=== PATIENT | female | born 1940 | race Caucasian/White ===

== ENCOUNTER 2018-06-29 13:46 | Observation (INO) | payer MEDICARE, BC ==
--- NOTE | 2018-06-29 14:05 | EDM.PDOC ---
ED HPI GENERAL MEDICAL PROBLEM - General Chief Complaint: General Stated Complaint: FLU LIKE SYMPTOMS Time Seen by Provider: 06/29/18 13:46 Source of Information: Reports: Patient, Family (son) History Limitations: Reports: No Limitations - History of Present Illness INITIAL COMMENTS - FREE TEXT/NARRATIVE: 77 y.o.w.prasanth came to the ED because she is too week to ambulate, is bed ridden for a few days,vomited multiple times, coughing. Pt denied sick contact. She lives by herself. She is only to go to the bathroom and back to the beds because of weakness. She denied painful urination, no trauma. She feels extremely nauseated. No SOB or CP.no other acute medical issues. BP 165/95 RR 18 Pulse ox 93% on RA RR 18 pulse 93 Temp 36.7 Onset Date: 06/25/18 Onset Time: 07:00 Duration: Day(s):, Getting Worse, Intermittent Location: Reports: Generalized Quality: Reports: Same as Previous Episode Severity: Moderate Improves with: Reports: Rest Worsens with: Reports: Movement Context: Reports: Sick Contact Associated Symptoms: Reports: Cough, Loss of Appetite, Nausea/Vomiting, Weakness - Related Data Allergies Allergy/AdvReac Type Severity Reaction Status Date / Time codeine Allergy Hives Verified 06/29/18 18:53 fluconazole [From Diflucan] Allergy Hives Verified 06/29/18 18:53 tramadol Allergy Hives Verified 06/29/18 18:53 NUT Allergy Cannot Uncoded 06/29/18 18:53 Remember Home Meds: Home Meds Acetaminophen [Tylenol Arthritis Pain] 650 mg PO Q8H PRN 11/02/13 [History] Aspirin [Adult Low Dose Aspirin EC] 81 mg PO DAILY 11/02/13 [History] Cholecalciferol (Vitamin D3) [Vitamin D3] 2,000 unit PO BID 11/02/13 [History] Losartan [Cozaar] 50 mg PO DAILY 11/02/13 [History] glipiZIDE [Glipizide Xl] 2.5 mg PO DAILY 11/02/13 [History] hydrOXYzine HCl [hydrOXYzine] 50 mg PO BEDTIME PRN 11/02/13 [History] ED ROS GENERAL - Review of Systems Review Of Systems: See Below Constitutional: Reports: Malaise, Weakness, Fatigue, Decreased Appetite HEENT: Reports: No Symptoms Respiratory: Reports: Cough, Sputum Cardiovascular: Reports: No Symptoms Endocrine: Reports: No Symptoms GI/Abdominal: Reports: No Symptoms : Reports: No Symptoms Musculoskeletal: Reports: No Symptoms Skin: Reports: No Symptoms Neurological: Reports: Dizziness, Difficulty Walking, Weakness Psychiatric: Reports: No Symptoms Hematologic/Lymphatic: Reports: No Symptoms Immunologic: Reports: No Symptoms ED EXAM, GENERAL - Physical Exam Exam: See Below Exam Limited By: No Limitations General Appearance: Alert, Moderate Distress, Thin Eye Exam: Bilateral Eye: Normal Inspection Ears: Normal External Exam Ear Exam: Bilateral Ear: Auricle Normal Nose: Normal Inspection, Normal Mucosa, No Blood Throat/Mouth: Normal Inspection, Normal Lips, Normal Voice, No Airway Compromise Head: Atraumatic, Normocephalic Neck: Normal Inspection, Supple, Non-Tender Respiratory/Chest: No Respiratory Distress, Rhonchi Cardiovascular: Normal Peripheral Pulses, Regular Rate, Rhythm GI/Abdominal: Normal Bowel Sounds, Soft, Non-Tender, No Organomegaly, No Mass, Pelvis Stable (Female) Exam: Deferred Rectal (Female) Exam: Deferred Back Exam: Normal Inspection, Full Range of Motion Extremities: Normal Inspection Neurological: Alert, Oriented, CN II-XII Intact Psychiatric: Normal Affect, Normal Mood Skin Exam: Warm, Dry, Intact, Normal Color Lymphatic: No Adenopathy Course - Vital Signs Text/Narrative:: 77 y.o.w.f came to the ED because she is too week to ambulate, is bed ridden for a few days,vomited multiple times, coughing. Pt denied sick contact. She lives by herself. She is only to go to the bathroom and back to the beds because of weakness. She denied painful urination, no trauma. She feels extremely nauseated. No SOB or CP.no other acute medical issues. BP 165/95 RR 18 Pulse ox 93% on RA RR 18 pulse 93 Temp 36.7 PE: Thin 77 y.o w f with gen weakness, vomiting Labs: WBC nl except Neurt 82.3 BMP nl except BUN 24 Cr. 0.8 BUN/CR ratio elevated Glc 204 UA pos for UTI. Impression: Viral syndrome, Bronchitis, UTI, Dehydration, gen weakness, H/O NIDDM Tx: NS, Levaquin, Zofran, Antivert, Reglan Reexam: Her strength did not improve, unable to ambulate, still nauseated, pt lives by herself Plan: Admit to M?S Last Recorded V/S: Last Vital Signs Temp 36.8 C 06/29/18 19:59 Pulse 86 06/29/18 19:59 Resp 18 06/29/18 19:59 BP 122/63 06/29/18 19:59 Pulse Ox 96 06/29/18 19:59 - Orders/Labs/Meds Orders: Active Orders 24 hr Category Date Time Status RT Aerosol Therapy [RC] ASDIRECTED Care 06/29/18 14:42 Active Chest 1V Frontal [CR] Stat Exams 06/29/18 14:04 Taken Labs: Laboratory Tests 06/29/18 06/29/18 06/29/18 Range/Units 14:20 14:20 14:20 WBC 9.3 (4.5-12.0) X10-3/uL RBC 4.85 (3.23-5.20) x10(6)uL Hgb 14.4 (11.5-15.5) g/dL Hct 43.4 (30.0-51.3) % MCV 89.3 (80-96) fL MCH 29.8 (27.7-33.6) pg MCHC 33.3 (32.2-35.4) g/dL RDW 13.3 (11.5-15.5) % Plt Count 172 (125-369) X10(3)uL MPV 8.5 (7.4-10.4) fL Neut % (Auto) 82.3 H (46-82) % Lymph % (Auto) 6.6 L (13-37) % [place] % (Auto) 10.2 (4-12) % Eos % (Auto) 0 L (1.0-5.0) % Baso % (Auto) 1 (0-2) % Neut # (Auto) 7.7 (1.6-8.3) # Lymph # (Auto) 0.6 (0.6-5.0) # Toole # (Auto) 0.9 (0.0-1.3) # Eos # (Auto) 0.0 (0.0-0.8) # Baso # (Auto) 0.1 (0.0-0.2) # Sodium 137 (135-145) mmol/L Potassium 4.4 (3.5-5.3) mmol/L Chloride 99 L (100-110) mmol/L Carbon Dioxide 26 (21-32) mmol/L BUN 24 H (7-18) mg/dL Creatinine 0.8 (0.55-1.02) mg/dL Est Cr Clr Drug Dosing 48.72 mL/min Estimated GFR (MDRD) > 60 (>60) BUN/Creatinine Ratio 30.0 H (9-20) Glucose 204 H (80-116) mg/dL Lactic Acid 1.7 (0.4-2.2) mmol/L Calcium 9.4 (8.6-10.2) mg/dL Urine Color (YELLOW) Urine Appearance (CLEAR) Urine pH (5.0-6.5) Ur Specific [place] (1.010-1.025) Urine Protein (NEGATIVE) mg/dL Urine Glucose (UA) (NORMAL) mg/dL Urine Ketones (NEGATIVE) mg/dL Urine Occult Blood (NEGATIVE) Urine Nitrite (NEGATIVE) Urine Bilirubin (NEGATIVE) Urine Urobilinogen (NEGATIVE) mg/dL Ur Leukocyte Esterase (NEGATIVE) Urine RBC (0-5) Urine WBC (0-5) Ur Squamous Epith Cells (NS,R,O) Urine Bacteria (NS) 06/29/18 Range/Units 16:57 WBC (4.5-12.0) X10-3/uL RBC (3.23-5.20) x10(6)uL Hgb (11.5-15.5) g/dL Hct (30.0-51.3) % MCV (80-96) fL MCH (27.7-33.6) pg MCHC (32.2-35.4) g/dL RDW (11.5-15.5) % Plt Count (125-369) X10(3)uL MPV (7.4-10.4) fL Neut % (Auto) (46-82) % Lymph % (Auto) (13-37) % [place] % (Auto) (4-12) % Eos % (Auto) (1.0-5.0) % Baso % (Auto) (0-2) % Neut # (Auto) (1.6-8.3) # Lymph # (Auto) (0.6-5.0) # [place]ole # (Auto) (0.0-1.3) # Eos # (Auto) (0.0-0.8) # Baso # (Auto) (0.0-0.2) # Sodium (135-145) mmol/L Potassium (3.5-5.3) mmol/L Chloride (100-110) mmol/L Carbon Dioxide (21-32) mmol/L BUN (7-18) mg/dL Creatinine (0.55-1.02) mg/dL Est Cr Clr Drug Dosing mL/min Estimated GFR (MDRD) (>60) BUN/Creatinine Ratio (9-20) Glucose (80-116) mg/dL Lactic Acid (0.4-2.2) mmol/L Calcium (8.6-10.2) mg/dL Urine Color Yellow (YELLOW) Urine Appearance Clear (CLEAR) Urine pH 5.0 (5.0-6.5) Ur Specific [place] 1.025 (1.010-1.025) Urine Protein 30 H (NEGATIVE) mg/dL Urine Glucose (UA) 50 H (NORMAL) mg/dL Urine Ketones 15 H (NEGATIVE) mg/dL Urine Occult Blood Large H (NEGATIVE) Urine Nitrite Negative (NEGATIVE) Urine Bilirubin Negative (NEGATIVE) Urine Urobilinogen Normal (NEGATIVE) mg/dL Ur Leukocyte Esterase Large H (NEGATIVE) Urine RBC 5-10 H (0-5) Urine WBC 5-10 H (0-5) Ur Squamous Epith Cells Occasional (NS,R,O) Urine Bacteria Rare H (NS) Meds: Medications Discontinued Medications Generic Name Dose Route Start Last Admin Trade Name Freq PRN Reason Stop Dose Admin Albuterol/Ipratropium 3 ml 06/29/18 14:42 06/29/18 14:48 Duoneb 3.0-0.5 Mg/3 Ml NEB 06/29/18 14:43 3 ml ONETIME ONE Administration Sodium Chloride 500 mls @ 999 mls/hr 06/29/18 14:41 06/29/18 14:46 Normal Saline IV 06/29/18 15:11 999 mls/hr .BOLUS ONE Administration Sodium Chloride 1,000 mls @ 999 mls/hr 06/29/18 15:44 06/29/18 15:45 Normal Saline IV 06/29/18 16:44 999 mls/hr .BOLUS ONE Administration Levofloxacin 500 mg 06/29/18 14:43 06/29/18 14:48 Levaquin PO 06/29/18 14:44 500 mg ONETIME STA Administration Meclizine HCl 25 mg 06/29/18 17:46 06/29/18 17:51 Antivert PO 06/29/18 17:47 25 mg ONETIME ONE Administration Metoclopramide HCl 10 mg 06/29/18 18:50 06/29/18 19:00 Reglan IVPUSH 06/29/18 18:51 10 mg ONETIME ONE Administration Ondansetron HCl 8 mg 06/29/18 14:41 06/29/18 14:48 Zofran IVPUSH 06/29/18 14:42 8 mg ONETIME ONE Administration Departure - Departure Time of Disposition: 19:17 Disposition: Refer to Observation Condition: Fair Clinical Impression: Weakness, Viral syndrome - Discharge Information - My Orders Last 24 Hours: My Active Orders 06/29/18 14:04 Chest 1V Frontal [CR] Stat 06/29/18 14:42 RT Aerosol Therapy [RC] ASDIRECTED - Assessment/Plan Last 24 Hours: My Active Orders 06/29/18 14:04 Chest 1V Frontal [CR] Stat 06/29/18 14:42 RT Aerosol Therapy [RC] ASDIRECTED
[2018-06-29] MEDS ORDERED: Sodium Chloride 0.9% 500 ML IV ONE (14:41)
[2018-06-29] MEDS ORDERED: Ondansetron 4 MG/2 ML SDV IVPUSH ONE (14:41)
[2018-06-29] MEDS ORDERED: Albuterol/Ipratropium 3.0-0.5 MG/3 ML Neb Soln NEB ONE (14:42)
[2018-06-29] MEDS ORDERED: Levofloxacin 500 MG Tab PO STA (14:43)
[2018-06-29] MEDS ORDERED: Sodium Chloride 0.9% 1,000 ML IV ONE (15:44)
[2018-06-29] MEDS ORDERED: Meclizine 25 MG Tab PO ONE (17:46)
[2018-06-29] MEDS ORDERED: Metoclopramide 10 MG/2 ML SDV IVPUSH ONE (18:50)
[2018-06-29] MEDS ORDERED: HYDROXYZINE HCL 50 MG PO PRN (21:40)
[2018-06-29] MEDS: Acetaminophen 650 MG Tab.ER PO PRN (22:37)
[2018-06-30] MEDS ORDERED: Aspirin 81 MG Tab.EC PO SCH (09:00)
[2018-06-30] MEDS ORDERED: glipiZIDE 5 MG Tab.ER PO SCH (09:00)
[2018-06-30] MEDS ORDERED: Losartan 50 MG Tab PO SCH (09:00)
[2018-06-30] MEDS ORDERED: Non-Formulary Medication 1 Each (Cholecalciferol (Vitamin D3) [Vitamin D3] 2,000 UNIT) PO SCH (09:00)
[2018-06-30] MEDS ORDERED: Lactated Ringers 1,000 ML IV SCH (09:30)
--- NOTE | 2018-06-30 11:46 | CR ---
INDICATION: Cough. CHEST: A portable AP upright view of the chest, 06/29/18 - no comparison. Calcification is noted in the arch of the aorta. The chest is rotated to the left somewhat. Buttons are noted overlying the upper middle chest. The heart is normal in size and shape. A definite active infiltrate or effusion was not identified. However, bronchial wall cuffing is noted, mostly at the lung bases, which may be on the basis of fibrosis and/or active peribronchial disease and should be correlated clinically. MTDD
--- NOTE | 2018-06-30 12:25 | HP ---
ADMISSION DATE: 06/29/2018 CHIEF COMPLAINT: Weakness, nausea, vomiting. HISTORY OF PRESENT ILLNESS: Domi is a 77-year-old woman from [place], [place], with a history of hypertension, type 2 diabetes, and chronic itching. She states that approximately for the past two weeks she has had low-grade fevers, and six days ago, she began to have higher fever with headache. Five days ago, she began vomiting, and she has been vomiting every day since that. She has been unable to eat and hold only small amounts of liquid down. She has not had any diarrhea, but she has had some lower abdominal discomfort and cough. For the past three days, she has had significant nasal congestion and her cough has been productive of green and now yellow phlegm. She has not had chest pain, palpitations, dyspnea, hematochezia, or melena. PAST MEDICAL HISTORY: Hypertension, treated for about five years; diabetes, well controlled on glipizide. She is status post spinal fusion, removal of cyst from her foot. She has had left wrist surgery. She is 4, para 3, with three normal deliveries. No other surgeries or medical problems. MEDICATIONS: 1. Losartan 50 mg daily. 2. Glipizide 2.5 mg daily. 3. Tylenol p.r.n. 4. Aspirin 81 mg daily. ALLERGIES: Codeine causes hives. Diflucan causes hives. Tramadol causes hives. She also reports allergy to tree nuts. She says she has had a severe intolerance to metformin with vomiting. HABITS: Nonsmoker for the past 25 years, she only smoked sporadically prior to that. No alcohol. Two to four cups coffee per day. FAMILY HISTORY: The patient's father at age 80 of diabetes and a stroke. Mother at 79 of an PA. She has three siblings. She is one of nine children in the family. Three older siblings had of COPD, one of diabetes. SOCIAL HISTORY: The patient was and in 2002. 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 She now lives by herself and is quite active and generally healthy. REVIEW OF SYSTEMS: GENERAL: No seizure, syncope, or recent significant weight change. SKIN: Negative for rash. HEENT: No recent changes in hearing or vision. She has had a sore throat with this. No hematochezia or melena. No hematemesis. No urinary burning or urgency. No swelling or skin rash. She does have the itching of the forearms. No joint inflammation or mood instability. PHYSICAL EXAMINATION: GENERAL: She is alert, but pale and weak in appearance. VITAL SIGNS: Blood pressure 118/76, pulse 76 and regular, respirations normal, temperature 97.6, O2 saturation 97% on room air. Weight 128 pounds 8 ounces. SKIN: Anicteric. Warm and dry without rash. HEENT: Show clear TMs. Pupils are equal and reactive. Oropharynx clear. NECK: Supple. Thyroid normal. LUNGS: Clear to the bases. HEART: Regular without murmur or gallop. ABDOMEN: Soft. Normal bowel sounds. Nontender. EXTREMITIES: Show no edema. Skin turgor is poor. LABORATORY: White count 9300, hemoglobin 14.4. Electrolytes normal. BUN 24, creatinine 0.8. Urinalysis shows 5 to 10 white cells, 5 to 10 red cells. ASSESSMENT: 1. Acute viral illness, possibly influenza. 2. Hypertension, controlled. 3. Type 2 diabetes. 4. Chronic itching. 5. Possible urinary tract infection. PLAN: The patient was given a liter of fluid in the ER and one dose of Levaquin IV. She was still weak enough to get up and walk and thus was admitted to observation care. We will give her additional IV fluid, test her for influenza, and anticipate discharge later today if she can hold foods down and get up and move around. /[id number] CARLEY/OTTO
[2018-06-30] MEDS: Acetaminophen 650 MG Tab.ER PO PRN (17:51)
[2018-06-30] MEDS ORDERED: Oseltamivir 30 MG Cap PO SCH (21:00)
--- NOTE | 2018-07-01 10:48 | DISCH ---
DISCHARGE DATE: 06/30/2018 PRIMARY FINAL DIAGNOSIS: Acute influenza A with weakness, dehydration, and dyspnea. OTHER DIAGNOSES: 1. Chronic obstructive pulmonary disease. 2. Chronic essential hypertension. 3. Type 2 diabetes. OPERATIONS: None. COMPLICATIONS: None. SUMMARY: Domi is a 77-year-old woman, who had been sick for a couple of weeks and got worse on the day prior to admission. She was extremely weak. She had been vomiting, not holding down liquid, oral foods, and was short of breath and coughing. On admission, she had a white count of 9300, hemoglobin 14.4. Electrolytes normal. BUN 24, creatinine 0.8. Urinalysis with 5 to 10 white cells, 5 to 10 red cells. The patient was given a dose of IV Levaquin in the emergency room and admitted. A nasal swab for influenza A was positive. She was quite weak and lightheaded when standing. She was given 2 L of IV fluid. By the next day, she was feeling slightly better. She was able to eat and hold down food for both breakfast and late lunch. She was ready for discharge after 24 hours. She is sent home in an improved condition to continue to take medications as follows: Aspirin 81 mg daily, glipizide 2.5 mg daily, hydroxyzine 50 mg at bedtime p.r.n. itching, losartan 50 mg daily, Tamiflu 30 mg b.i.d. x5 days. She is asked to see Lolis Ordoñez in the office within 7 to 10 days and follow up sooner p.r.n. /[id number] [id number] CARLEY/OTTO
== END 2018-06-30 18:24 | disposition home or self-care (01) ==
LOC: FB.ED 13:46 → FB.MS 19:15
PROVIDERS: ADMIT Family Medicine; ATTEND Family Medicine
DX: J11.1 Influenza due to unidentified influenza virus with other respiratory manifestations (principal); E86.0 Dehydration; R53.1 Weakness; R06.00 Dyspnea, unspecified; E11.9 Type 2 diabetes mellitus without complications; I10 Essential (primary) hypertension; J44.9 Chronic obstructive pulmonary disease, unspecified; Z87.891 Personal history of nicotine dependence; Z79.84 Long term (current) use of oral hypoglycemic drugs; Z79.899 Other long term (current) drug therapy; Z88.5 Allergy status to narcotic agent; Z91.018 Allergy to other foods; Z88.8 Allergy status to other drugs, medicaments and biological substances
CPT/HCPCS: 36415; 71045; 80048; 81001; 83605; 85025; 87804; 87804-59; 94640; 96361; 96374; 96375; 99284-25; 99285; A9270-GY; G0378; J2405; J2765; J7030; J7040; J7120; J7620-GY

== ENCOUNTER 2020-10-24 09:27 | Emergency (ER) | payer MEDICARE, BC ==
--- NOTE | 2020-10-24 09:52 | EDM.PDOC ---
ED HPI GENERAL MEDICAL PROBLEM - General Chief Complaint: General Stated Complaint: FELL AND HURT RIGHT ANKLE Time Seen by Provider: 10/24/20 09:49 Source of Information: Reports: Patient History Limitations: Reports: No Limitations - History of Present Illness INITIAL COMMENTS - FREE TEXT/NARRATIVE: Right ankle pain after a sprain last night. Worse with weight bearing. Mild to Moderate swelling. Shoe caught on carpet,and rolled . She immediately passed ot due to the pain Right Ankle Pain Score (Numeric/FACES): 9 - Related Data Allergies Allergy/AdvReac Type Severity Reaction Status Date / Time codeine Allergy Hives Verified 06/29/18 18:53 fluconazole [From Diflucan] Allergy Hives Verified 06/29/18 18:53 tramadol Allergy Hives Verified 06/29/18 18:53 NUT Allergy Cannot Uncoded 06/29/18 18:53 Remember Home Meds: Home Meds Acetaminophen [Tylenol Arthritis Pain] 650 mg PO Q8H PRN 11/02/13 [History] Aspirin [Adult Low Dose Aspirin EC] 81 mg PO DAILY 11/02/13 [History] Cholecalciferol (Vitamin D3) [Vitamin D3] 2,000 unit PO BID 11/02/13 [History] Losartan [Cozaar] 50 mg PO DAILY 11/02/13 [History] glipiZIDE [Glipizide Xl] 2.5 mg PO DAILY 11/02/13 [History] hydrOXYzine HCL [hydrOXYzine] 50 mg PO BEDTIME PRN 11/02/13 [History] Oseltamivir [Tamiflu] 30 mg PO BID cap 06/30/18 [Rx] Past Medical History Cardiovascular History: Reports: Hypertension Endocrine/Metabolic History: Reports: Diabetes, Type II Social & Family History - Family History Family Medical History: No Pertinent Family History Respiratory: Reports: None Psychiatric: Reports: None - Caffeine Use Caffeine Use: Reports: Coffee ED ROS GENERAL - Review of Systems Review Of Systems: Comprehensive ROS is negative, except as noted in HPI. ED EXAM, GENERAL - Physical Exam Exam: See Below Exam Limited By: No Limitations General Appearance: Alert, No Apparent Distress Back Exam: Normal Inspection Extremities: Joint Swelling, Limited Range of Motion, Other (Right ankle,tender lateral mealleolus.,). No: No Pedal Edema Neurological: Alert, Oriented Course - Vital Signs Last Recorded V/S: Last Vital Signs Temp 97.9 F 10/24/20 09:33 Pulse 93 10/24/20 09:33 Resp 20 10/24/20 09:33 BP 172/97 H 10/24/20 09:33 Pulse Ox 97 10/24/20 09:33 - Orders/Labs/Meds Orders: Active Orders 24 hr Category Date Time Status Ankle Min 3V Rt [CR] Stat Exams 10/24/20 09:49 Taken Departure - Departure Time of Disposition: 10:05 Disposition: Home, Self-Care 01 Condition: Good Clinical Impression: Sprain of ankle Qualifiers: Encounter type: initial encounter Laterality: right - Discharge Information Instructions: Ankle Sprain, [id number] Referrals: Lolis Ordoñez NP [Nurse Practitioner] - 10/26/20 Forms: ED Department Discharge Sepsis Event Note (ED) - Evaluation Sepsis Screening Result: No Definite Risk - Focused Exam Vital Signs: Vital Signs Temp Pulse Resp BP Pulse Ox 10/24/20 09:33 97.9 F 93 20 172/97 H 97 10/24/20 09:31 97.9 F 92 20 172/97 H 97 - Problem List & Annotations (1) Sprain of ankle SNOMED Code(s): 42456951 Code(s): S93.409A - SPRAIN OF UNSP LIGAMENT OF UNSPECIFIED ANKLE, INIT ENCNTR Status: Acute Qualifiers: Encounter type: initial encounter Laterality: right - Problem List Review Problem List Initiated/Reviewed/Updated: Yes - My Orders Last 24 Hours: My Active Orders 10/24/20 09:49 Ankle Min 3V Rt [CR] Stat - Assessment/Plan Last 24 Hours: My Active Orders 10/24/20 09:49 Ankle Min 3V Rt [CR] Stat Plan: RICE
== END 2020-10-24 10:14 | disposition home or self-care (01) ==
LOC: FB.ED 09:27
DX: S93.401A Sprain of unspecified ligament of right ankle, initial encounter (principal); E11.9 Type 2 diabetes mellitus without complications; I10 Essential (primary) hypertension; Z88.5 Allergy status to narcotic agent; Z88.8 Allergy status to other drugs, medicaments and biological substances; Z91.010 Allergy to peanuts; Z79.82 Long term (current) use of aspirin; W18.39XA Other fall on same level, initial encounter; Y92.009 Unspecified place in unspecified non-institutional (private) residence as the place of occurrence of the external cause
CPT/HCPCS: 73610-RT; 99283-25

== ENCOUNTER 2024-01-11 17:36 | Emergency (ER) | payer MEDICARE, BC | END 2024-01-11 18:28 | disposition home or self-care (01) | LOC: FB.ED 17:36 | DX: S93.601A Unspecified sprain of right foot, initial encounter (principal); I10 Essential (primary) hypertension; E11.9 Type 2 diabetes mellitus without complications; Z79.899 Other long term (current) drug therapy; Z79.82 Long term (current) use of aspirin; Z88.5 Allergy status to narcotic agent; Z91.018 Allergy to other foods; Z88.8 Allergy status to other drugs, medicaments and biological substances; X50.1XXA Overexertion from prolonged static or awkward postures, initial encounter | CPT/HCPCS: 73610-RT; 99283 ==